=== PATIENT | male | born 2000 | race Hispanic/Latino ===

== ENCOUNTER 2022-01-26 16:39 | Emergency (ER) | payer SELFPAY ==
[2022-01-26 16:39] VITALS: BP 121/70; PULSE 74; RESP 14; TEMP 36.9; O2SAT 100; BMI 24.5
--- NOTE | 2022-01-26 17:07 | EDS_ITS ---
HPI HPI - GI History of Present Illness Chief Complaint: Abd Pain Informant: patient Abdominal Pain/Flank Pain Onset: Weeks (1-2) Context: Gradual Onset Timing: Intermittent and Lasts (several hrs) Quality: Aching Location: Epigastric (Without radiation or migration) Current Severity: Moderate Maximum Severity: Moderate Worsened by: Nothing; Not Worsened By Food Relieved by: Nothing (tried tizanizole) Nausea/Vomiting/Emesis GI Symptom: Positive for Nausea and Vomiting Onset: Weeks (1) Quality: Negative for Blood streaks, Coffee ground and Hematemesis Diarrhea/Melena/Hematochezia GI Symptom: Negative for Diarrhea, Melena and Hematochezia Associated Symptoms Associated Symptoms: Negative for Dysuria, Frequency, Hematuria and Urgency Narrative Narrative: Epigastric pain off-and-on for over a week. Associated with nausea and dry heaving. No blood in his stool or melena. No lightheadedness or syncopal episodes. No chest discomfort or dyspnea. No radiation into his back. No association with food or alcohol, he is not drinking alcohol. PFSH PFSH Medical History no medical history no medical history Home Medications dicyclomine 20 mg PO Q6H PRN PRN #20 capsule 01/26/22 [Rx Last Taken Unknown] ondansetron 8 mg PO Q8H PRN PRN #20 tab 01/26/22 [Rx Last Taken Unknown] pantoprazole 40 mg PO DAILY #30 tab 01/26/22 [Rx Last Taken Unknown] Allergy/AdvReac Type Severity Reaction Status Date / Time No Known Allergies Allergy Verified 01/26/22 17:36 Family History no significant family his Surgical History no surgical history no surgical history Social History Smoking Status: Never smoker [facility] ED Constitutional Constitutional ED: Denies chills or fever(s) Eyes Eyes: Denies change in vision or diplopia ENT ENT ED: Denies rhinorrhea or sore throat Cardiovascular Cardiovascular: Denies chest pain or palpitations Respiratory/Chest Respiratory/Chest: Denies cough or dyspnea Gastrointestinal Gastrointestinal: Reports abdominal pain, nausea and vomiting; Denies diarrhea Genitourinary Genitourinary ED: Denies dysuria or hematuria Musculoskeletal Musculoskeletal: Denies back pain or neck pain Integumentary Denies abscess or rash Neurologic Neurologic: Denies headache(s), paresthesias or weakness Psychiatric Psychiatric: Denies anxiety or suicidal thoughts EXAM Physical Exam Const Vital Signs: 01/26/22 16:39 01/26/22 19:01 Temperature 98.5 F Temperature Source Temporal Pulse Rate 74 87 Respiratory Rate 14 16 Blood Pressure 121/70 H 121/71 H Blood Pressure Mean 87 87 Pulse Ox 100 99 Oxygen Delivery Method Room Air Positive well nourished and well developed Constitutional Narrative: Well-appearing in no distress General Appearance ED: well developed and NAD HEENT Reports moist mucous membranes normocephalic and atraumatic Eyes PERRL and EOMs intact bilaterally Neck full ROM and supple Resp normal respiratory effort and clear to auscultation bilaterally Effort and Inspection: able to speak in complete sentences Cardio regular rate, regular rhythm and no murmurs GI non-distended GI Narrative: Tender epigastric, no other areas of tenderness. No guarding or rebound tenderness. No pulsatile mass. Auscultation: normoactive bowel sounds Palpation: soft Back/Spine no CVA tenderness General Back: other FROM Extremity normal to inspection General Extremety ED: Negative for edema, pulses abnormal or tenderness General Extremity: Negative for edema or pulses abnormal Neuro oriented x3, CN's II-XII intact bilaterally and no sensory deficits noted Sensorium / Orientation: awake and alert Motor Exam: strength 5/5 throughout Skin no rashes or lesions noted and no wounds MDM MDM MDM Narrative Medical decision making narrative: Basic labs including liver enzymes and lipase are all normal except for a slightly elevated alkaline phosphatase which is nonspecific at 130 and can be present only with dry heaving/vomiting. He was given GI cocktail with Zofran and dicyclomine all orally. On reevaluation the pain is gone and his abdomen is nontender. At this time I do not think he needs a gallbladder ultrasound or CT of the abdomen/pelvis for this, I would treat him as gastritis with PPI and encouraged outpatient follow-up and he is comfortable with that plan all questions answered at bedside. Director Commercial [employer] was used for the history and communication with the patient. He was given a chance to ask any questions. Lab Data Attestation: I reviewed the patient's lab results. Labs: Laboratory Results - last 24 hr 01/26/22 01/26/22 01/26/22 16:55 16:55 16:55 WBC 6.0 RBC 5.89 Hgb 16.8 H Hct 49.6 MCV 84.2 MCH 28.5 MCHC 33.9 RDW Std Deviation 41.7 RDW Coeff of Jaky 13.4 Plt Count 280 MPV 10.4 Immature Gran % (Auto) 0.200 Neut % (Auto) 54.6 Lymph % (Auto) 36.1 [place] % (Auto) 7.5 Eos % (Auto) 1.3 Baso % (Auto) 0.3 Absolute Neuts (auto) 3.3 Absolute Lymphs (auto) 2.16 Nucleated RBC % 0 Sodium 141 Potassium 4.2 Chloride 107 Carbon Dioxide 29.0 Anion Gap 5 BUN 8 Creatinine 0.97 Estim Creat Clear Calc 106.55 Est GFR (MDRD) Af Amer 127 Est GFR (MDRD) Non-Af 105 BUN/Creatinine Ratio 8.2 L Glucose 101 Calcium 8.9 Total Bilirubin 0.60 AST 19 ALT 24 Alkaline Phosphatase 130 H Total Protein 7.9 Albumin 4.3 Globulin 3.6 Albumin/Globulin Ratio 1.2 Lipase 64 L Urine Color Urine Clarity Urine pH Ur Specific [place] Urine Protein Urine Glucose (UA) Urine Ketones Urine Occult Blood Urine Nitrite Urine Bilirubin Urine Urobilinogen Ur Leukocyte Esterase Urine RBC Urine WBC Ur Squamous Epith Cells Urine Bacteria Urine Mucus 01/26/22 17:09 WBC RBC Hgb Hct MCV MCH MCHC RDW Std Deviation RDW Coeff of Jaky Plt Count MPV Immature Gran % (Auto) Neut % (Auto) Lymph % (Auto) [place] % (Auto) Eos % (Auto) Baso % (Auto) Absolute Neuts (auto) Absolute Lymphs (auto) Nucleated RBC % Sodium Potassium Chloride Carbon Dioxide Anion Gap BUN Creatinine Estim Creat Clear Calc Est GFR (MDRD) Af Amer Est GFR (MDRD) Non-Af BUN/Creatinine Ratio Glucose Calcium Total Bilirubin AST ALT Alkaline Phosphatase Total Protein Albumin Globulin Albumin/Globulin Ratio Lipase Urine Color Yellow Urine Clarity Sl. Cloudy Urine pH 6.5 Ur Specific [place] 1.010 Urine Protein Negative Urine Glucose (UA) Normal Urine Ketones Negative Urine Occult Blood Negative Urine Nitrite Negative Urine Bilirubin Negative Urine Urobilinogen Normal Ur Leukocyte Esterase 25 H Urine RBC 0 SEEN Urine WBC 0-5 SEEN Ur Squamous Epith Cells 0-5 SEEN Urine Bacteria 0 SEEN Urine Mucus 0 SEEN Discharge Plan Triage Chief Complaint: Abd Pain ED Provider: Rodolfo Canales Dx/Rx/DC Orders Clinical Impression: Acute gastritis without bleeding Instructions: ED Gastritis (Adult) Prescriptions: New pantoprazole 40 mg tablet,delayed release (DR/EC) 40 mg PO DAILY Qty: 30 RF: 0 dicyclomine 10 mg capsule 20 mg PO Q6H PRN PRN (Reason: abdominal discomfort) Qty: 20 RF: 0 ondansetron 4 mg tablet,disintegrating 8 mg PO Q8H PRN PRN (Reason: Nausea) Qty: 20 RF: 0 Primary Care Provider: Care Physician,No Primary Referrals: Friend,Refugio, DO [STAFF PHYSICIAN] - 1 Week if not improving Care Physician,No Primary [Primary Care Provider] - Print Language: Burmese Disposition Disposition: Home, Self Care
[2022-01-26 17:12] LABS: Absolute Lymphocyte Count 2.16 X10^3/uL (0.83-4.51); Absolute Neutrophil Count 3.3 X10^3/uL (2.0-7.7); Basophil# 0.02 X10^3/uL; Basophil% 0.3 % (0-1); Eosinophil# 0.08 X10^3/uL; Eosinophils% 1.3 % (0-5); Hematocrit 49.6 % (40-54); Hemoglobin 16.8 g/dL (13.0-16.5); Lymphocyte # 2.16 X10^3/ul (0.83-4.51); Lymphocyte % 36.1 % (19-41); Mean Corp Hgb Conc 33.9 g/dL (32-36); Mean Corpuscular Hgb 28.5 pg (27.0-32.0); Mean Corpuscular Volume 84.2 fL (80-94); Mean Platelet Vol. 10.4 fl (6.2-12.0); Monocyte# 0.45 X10^3/uL; Monocyte% 7.5 % (0-10); NRBC Flagged by Analyzer 0 % (0-5); Neutrophil # 3.26 X10^3/uL (2.7-7.7); Neutrophil % 54.6 % (47-70); Platelet Count 280 K/mm3 (150-450); RBC Distribution Width CV 13.4 % (11.6-14.6); RBC Distribution Width SD 41.7 fl (35.1-43.9); Red Blood Count 5.89 M/mm3 (4.6-6.2)
[2022-01-26 17:13] LABS: Bacteria 0 SEEN /hpf (None Seen); Mucous, Urine 0 SEEN /hpf (<or=2+); Red Blood Cells-Urine 0 SEEN /hpf (0-5)
[2022-01-26 17:15] LABS: Color, Urine Yellow (Yellow); Glucose, Dipstick Normal (Normal); Ketone-Dipstick Negative (Negative); Leukocyte Esterase-Dipstick 25 /ul (Negative); Nitrite-Dipstick Negative (Negative); Occult Blood-Urine Negative /ul (Negative); Protein-Dipstick Negative (Negative); Urine Bilirubin Dipstick Negative (Negative); Urine Clarity Sl. Cloudy (Clear); Urine Urobilinogen Normal (Normal); Urine pH 6.5 (5.0 - 8.0)
[2022-01-26 17:20] LABS: Anion Gap 5 (5-15); BUN 8 mg/dL (7-18); BUN/Creat Ratio 8.2 RATIO (10-20); Calcium,Total 8.9 mg/dL (8.5-10.1); Chloride 107 mmol/L (98-107); Creatinine, Serum 0.97 mg/dL (0.70-1.30); EST Glomerular Filtration Rate 105 mL/min (>60); Est Glom Filt Rate - Afr Amer 127 mL/min (>60); Estimated Creatinine Clearance 106.55 ml/min; Glucose 101 mg/dL (74-106); Potassium 4.2 mmol/L (3.5-5.1); Sodium Level 141 mmol/L (136-145)
[2022-01-26 17:21] LABS: Squamous Epithelial Cells - UA 0-5 SEEN /hpf (0-5); White Blood Cells 0-5 SEEN /hpf (0-5)
[2022-01-26] MEDS: Dicyclomine 10 MG Capsule 20 MG PO (17:22)
[2022-01-26] MEDS: Mag Hydrox/Al Hydrox/Simeth 30 ML UDC PO (17:25)
[2022-01-26] MEDS: Ondansetron 4 MG/2 ML Vial IV (17:25)
[2022-01-26 17:45] LABS: ALB/GLOB Ratio 1.2 RATIO (0.9-2.4); AST(SGOT) 19 U/L (15-37); Alanine Aminotransfer ALT/SGPT 24 U/L (16-61); Albumin, Serum 4.3 g/dL (3.2-5.0); Alkaline Phosphatase 130 U/L (45-117); Globulin 3.6 g/dL (2.2-4.2); Protein, Total 7.9 g/dL (6.4-8.2)
[2022-01-26 18:32] LABS: Lipase 64 U/L (73-393)
[2022-01-26 19:01] VITALS: BP 121/71; PULSE 87; RESP 16; O2SAT 99
[2022-01-26] MEDS: Pantoprazole Sodium 40 MG Tablet PO (19:29)
[2022-01-26 19:30] VITALS: RESP 16
== END 2022-01-26 19:32 | disposition home or self-care (01) ==
PROVIDERS: Emergency Provider Emergency Medicine; Visit Provider Emergency Medicine
DX: K29.00 Acute gastritis without bleeding (principal); Z79.899 Other long term (current) drug therapy
CPT/HCPCS: 80053; 81001; 83690; 85025; 96374; 99283; A4216; J2405